=== PATIENT | female | born 1990 | race Caucasian/White ===

== ENCOUNTER 2023-09-11 21:54 | Inpatient (IN) | payer OTHER ==
[2023-09-11 22:29] VITALS: BMI 22.0
[2023-09-11] MEDS ORDERED: P-EPHED 60MG/TRIPROLIDI 2.5MG TABLET PO PRN (23:07)
[2023-09-11] MEDS ORDERED: MAGNESIUM HYDROX 2400MG/30ML ORAL SUSPENSION 30 ML CUP PO PRN (23:07)
[2023-09-11] MEDS ORDERED: NALOXONE HCL (KLOXXADO) 8 MG SPRAY NS PRN (23:07)
[2023-09-11] MEDS ORDERED: NALOXONE HCL 0.4 MG/ML VIAL IM PRN (23:07)
[2023-09-11] MEDS ORDERED: IBUPROFEN 600 MG TABLET (FP) PO PRN (23:07)
[2023-09-11] MEDS ORDERED: BENZONATATE 200 MG CAPSULE PO PRN (23:07)
[2023-09-11] MEDS ORDERED: ONDANSETRON *ODT* 4 MG TABLET SL PRN (23:07)
[2023-09-11] MEDS ORDERED: BENZOCAINE/MENTHOL (CHLORASEPTIC ) LOZENGE MM PRN (23:07)
[2023-09-11] MEDS ORDERED: BISMUTH SUBSALICYLATE 524 MG/30 ML PO PRN (23:07)
[2023-09-11] MEDS ORDERED: IBUPROFEN 400 MG TABLET (FP) PO PRN (23:07)
[2023-09-11] MEDS ORDERED: POLYETHYLENE GLYCOL (HEALTHYLAX) 3350 17 GM PACKET PO PRN (23:07)
[2023-09-11] MEDS ORDERED: LOPERAMIDE HCL 2 MG CAPSULE PO PRN (23:07)
[2023-09-11] MEDS ORDERED: guaiFENesin 600 MG TABLET.ER (FP) PO PRN (23:07)
[2023-09-11] MEDS ORDERED: MAG HYDROX/AL HYDROX/SIMETH 30 ML UNIT-DOSE CUP PO PRN (23:07)
[2023-09-11] MEDS: methaDONE HCL 10 MG TABLET (FOR DETOX USE ONLY) PO ONE (23:55)
[2023-09-12] MEDS: cloNIDine HCL 0.1 MG TABLET PO PRN (01:58)
[2023-09-12] MEDS: DICYCLOMINE HCL 10 MG CAPSULE PO PRN (06:51)
[2023-09-12] MEDS: methaDONE HCL 10 MG TABLET (FOR DETOX USE ONLY) PO ONE (09:57)
[2023-09-12] MEDS: PRENATAL VITAMINS W/ FOLIC ACID TABLET (FP) PO SCH (09:58)
[2023-09-12] MEDS: METHOCARBAMOL 500 MG TABLET PO PRN (10:00)
[2023-09-12 10:42] LABS: HEMATOCRIT 39.2 % (32.4-45.2); MCH 29.3 pg (25.7-33.7); MCHC 33.2 g/dl (32.0-36.0); MEAN CELL VOLUME 88.2 fl (80-96); MEAN PLT VOLUME 8.9 fl (7.5-11.1); PLATELET COUNT 237 10^3/uL (134-434); RBC 4.45 M/mm3 (3.60-5.2); RDW 12.9 % (11.6-15.6); WHITE BLOOD COUNT 19.6 K/mm3 (4.0-10.0)
[2023-09-12 11:46] LABS: POTASSIUM 3.5 mmol/L (3.5-5.1)
[2023-09-12 11:56] LABS: CALCIUM 9.5 mg/dL (8.5-10.1)
[2023-09-12 11:58] LABS: ALBUMIN 3.9 g/dl (3.4-5.0); BLOOD UREA NITROGEN 9.1 mg/dL (7-18)
[2023-09-12 12:00] LABS: CREATININE 0.6 mg/dL (0.55-1.3)
[2023-09-12 12:02] LABS: BILIRUBIN,TOTAL 1.1 mg/dL (0.2-1); TOT PROT 7.7 g/dl (6.4-8.2)
[2023-09-12] MEDS: diazePAM 5 MG TABLET PO PRN (16:52)
[2023-09-12] MEDS: THIAMINE HCL 100 MG TABLET (FP) PO SCH (22:01)
[2023-09-12] MEDS: MELATONIN 5 MG TABLETS PO SCH (22:01)
[2023-09-13] MEDS ORDERED: ONDANSETRON *ODT* 4 MG TABLET SL PRN (04:20)
[2023-09-13] MEDS: ONDANSETRON *ODT* 4 MG TABLET SL ONE (05:14)
[2023-09-13] MEDS ORDERED: methaDONE HCL 10 MG TABLET (FOR DETOX USE ONLY) PO ONE (10:00)
[2023-09-13 10:34] LABS: POTASSIUM 3.5 mmol/L (3.5-5.1)
[2023-09-13 10:35] LABS: BLOOD UREA NITROGEN 14.1 mg/dL (7-18); CALCIUM 9.5 mg/dL (8.5-10.1)
[2023-09-13 10:40] LABS: CREATININE 0.7 mg/dL (0.55-1.3)
[2023-09-13] MEDS: NICOTINE POLACRILEX 2 MG GUM BUC PRN (12:48)
[2023-09-13] MEDS: ACETAMINOPHEN 325 MG TABLET (FP) PO PRN (17:12)
[2023-09-13] MEDS: diazePAM 5 MG TABLET PO ONE (19:55)
[2023-09-14 06:12] VITALS: BP 118/78; PULSE 80; RESP 17; TEMP 98
[2023-09-14] MEDS: diazePAM 5 MG TABLET PO ONE (06:43)
[2023-09-14] MEDS: methaDONE HCL 10 MG TABLET (FOR DETOX USE ONLY) PO ONE (10:12)
[2023-09-14 11:10] LABS: BASO % 0.2 % (0-2.0); HEMATOCRIT 40.1 % (32.4-45.2); HEMOGLOBIN 13.4 GM/dL (10.7-15.3); LYMPH % 16.3 % (8-40); MCH 29.4 pg (25.7-33.7); MCHC 33.3 g/dl (32.0-36.0); MEAN CELL VOLUME 88.1 fl (80-96); MEAN PLT VOLUME 8.8 fl (7.5-11.1); MONO % 4.8 % (3.8-10.2); NEUT % 78.7 % (42.8-82.8); PLATELET COUNT 294 10^3/uL (134-434); RBC 4.55 M/mm3 (3.60-5.2); RDW 12.9 % (11.6-15.6); WHITE BLOOD COUNT 12.9 K/mm3 (4.0-10.0)
[2023-09-15] MEDS ORDERED: methaDONE HCL 10 MG TABLET (FOR DETOX USE ONLY) PO ONE (05:00)
== END 2023-09-14 10:52 | disposition home or self-care (01) | DRG 775 ==
LOC: YASAS 21:54 → Y3N 09-12 01:00
PROVIDERS: ADMIT Allergy & Immunology; ATTEND Surgery
PROC: HZ2ZZZZ Detoxification Services for Substance Abuse Treatment (ICD-10-PCS; principal; 2023-09-12)
DX: F10.230 Alcohol dependence with withdrawal, uncomplicated (principal); F12.20 Cannabis dependence, uncomplicated; F17.210 Nicotine dependence, cigarettes, uncomplicated; F31.9 Bipolar disorder, unspecified; F19.24 Other psychoactive substance dependence with psychoactive substance-induced mood disorder; F41.9 Anxiety disorder, unspecified; D72.829 Elevated white blood cell count, unspecified
CPT/HCPCS: 0241U-QW; 36415; 80048; 80053; 85025; 85027; 86780; 87635; 93005; 93010; Q0162